=== PATIENT | female | born 1965 | race Caucasian/White ===

== ENCOUNTER → 2017-04-15 | Outpatient (CLI) | payer BC ==
[~2017-04-15] MED LIST: ACETAMIN-HYDROcod 325-5 MG PO; FERR324T4 PO; MEDR10 PO; PERC5TAB12 PO; PROV10TA PO; VITA500S3 SL; VITA500T83 PO; ZOFR8TAB PO
[2017-04-15 13:51] LABS: AUTOMATED NEUTROPHIL # 3.6 TH/MM3 (1.8-7.7); BASOPHIL % 0.6 % (0.0-2.0); EOSINOPHIL # 0.2 TH/MM3 (0-0.4); EOSINOPHIL % 3.7 % (0.0-4.0); HEMATOCRIT 38.7 % (35.0-46.0); LYMPH % 26.3 % (9.0-44.0); LYMPHOCYTE # 1.6 TH/MM3 (1.0-4.8); MEAN CORPUSCULAR HEMOGLOBIN 28.9 PG (27.0-34.0); MEAN CORPUSCULAR HGB CONC 33.6 % (32.0-36.0); MONO % 9.9 % (0.0-8.0); NEUT % 59.5 % (16.0-70.0); PLATELET COUNT 163 TH/MM3 (150-450); RED CELL DISTRIBUTION WIDTH 15.8 % (11.6-17.2); WHITE BLOOD COUNT 6.1 TH/MM3 (4.0-11.0)
[2017-04-15 13:54] LABS: BACTERIA, URINE OCC /hpf; BLOOD, URINE NEG (NEG); COMMENT (UR) CULT NOT INDICATED; CULTURE IF INDICATED CULT NOT INDICATED; GLUCOSE,URINE NEG (NEG); HYALINE CAST, URINE 1 /lpf (RARE); KETONE, URINE NEG (NEG); MUCUS URINE FEW /lpf (OCC); NITRITE,URINE NEG (NEG); PH, URINE 5.5 (5.0-8.5); SQUAMOUS EPITHELIAL CELL URINE 2 /hpf (0-5); URINE COLOR YELLOW (YELLW/STRAW)
[2017-04-15 13:56] LABS: HEMO FLAGS DIFF FINAL
--- NOTE | 2017-04-16 14:25 | EKG ---
Date Performed: 04/15/2017 Time Performed: 13:38:48 PTAGE: 51 years EKG: Sinus rhythm POSSIBLE LEFT ATRIAL ENLARGEMENT BORDERLINE ECG NO PREVIOUS TRACING DOCTOR: Aditya Gilman Interpretating Date/Time 04/16/2017 14:22:01
== END ==
LOC: CPRE 13:19
PROVIDERS: ATTEND Obstetrics & Gynecology
DX: Z01.810 Encounter for preprocedural cardiovascular examination (principal); Z01.812 Encounter for preprocedural laboratory examination; N92.0 Excessive and frequent menstruation with regular cycle; D50.0 Iron deficiency anemia secondary to blood loss (chronic); R94.31 Abnormal electrocardiogram [ECG] [EKG]
CPT/HCPCS: 36415; 81001; 85025; 93005

== ENCOUNTER 2017-04-21 10:17 | Observation (INO) | payer BC ==
--- NOTE | 2017-04-20 09:02 | MH ---
cc: MARGO RAI DATE OF ADMISSION 04/21/2017 ADMITTING DIAGNOSIS Menorrhagia with anemia HISTORY OF PRESENT ILLNESS This is a 51-year-old white female para 2-0-0-2 who has had persistent menorrhagia reduced with progesterone, but still anemic and now admitted for hysterectomy. PAST MEDICAL HISTORY She initially presented in December 31, 2015. Endometrial biopsy showed hyperplasia and she underwent outpatient hysteroscopy/D&C on 02/18/2016 which returned with benign tissue and she had a laparoscopic polypectomy through Dr. Oviedo at that time. Since that time, she has been cycled with Provera with persistent bleeding. Her last endometrial biopsy from 01/2017 was benign. She had colonoscopy in May 2016. Diagnosed with carcinoma and a partial colectomy through Dr. Welch in May of 2016. ADDITIONAL PAST MEDICAL HISTORY She had a tubal ligation in 1994. MEDICATIONS 1. Iron 2. Vitamins ALLERGIES DECADRON TRANSFUSIONS None OBSTETRICAL HISTORY x2 and tubal. 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 She is . Alcohol, tobacco and drugs are none. FAMILY HISTORY Her family history is noncontributory. PHYSICAL EXAM Reveals a well-nourished, well-developed white female. VITAL SIGNs: Stable. HEENT: Exam is normal. CHEST: Clear. HEART: Regular rate. ABDOMEN: Benign. PELVIC EXAM: External genitalia and BUS, vagina is normal. Cervix is normal. Uterus is about 12 weeks' size. Adnexa nonpalpable. ASSESSMENT As above. PLAN She is now admitted for planned laparoscopy through an open incision. She had bowel prep. If feasible, she will have a LASH/BSO, if not, she will have a SUNITA/BSO. Dr. Welch has been consulted to the available in the event that she has extensive adhesions and requires the additional bowel procedures. She is aware that the surgical procedure, risks and benefits will be effected by the extensive surgery and expected recovery as well. She elects to proceed. MD GUTIERREZ Stern/CINDY /8:33 AM /8:51 AM
[~2017-04-21] VITALS: Ht 172.7 cm; Wt 117.1 kg
[~2017-04-21 10:17] MED LIST changes: -ACETAMIN-HYDROcod 325-5 MG PO; +BUPIVACAINE LIPOSOME PF 1.3% 20 ML VIAL ONE; -FERR324T4 PO; -MEDR10 PO; -PERC5TAB12 PO; -VITA500S3 SL; -VITA500T83 PO; -ZOFR8TAB PO
[2017-04-21] MEDS ORDERED: POVIDONE IODINE 5% (ANTISEPSIS KIT) 4 APPLICATIONS EACH NARE PRN (10:45)
[2017-04-21] MEDS ORDERED: CHLORHEXIDINE GLUCONATE 2 % 1 PACK (2 CLOTHS) TOPICAL PRN (10:45)
[2017-04-21] MEDS ORDERED: SODIUM CHLORID 0.9% 500 ML IV PRN (10:45)
[2017-04-21] MEDS ORDERED: LACTATED RINGER'S 1000 ML IV PRN (10:45)
[2017-04-21] MEDS ORDERED: INSULIN HUMAN REGULAR 1,000 UNITS/10 ML VIAL SQ PRN (10:45)
[2017-04-21] MEDS ORDERED: METOPROLOL TARTRATE 25 MG TAB PO PRN (10:45)
[2017-04-21 10:48] VITALS: BP 134/84; PULSE 79; RESP 20; TEMP 98.8; O2SAT 95
[2017-04-21] MEDS ORDERED: ceFAZolin 2 GM PREMIX 50 ML IV ONE (11:00)
[2017-04-21] MEDS: ACETAMINOPHEN 1000 MG/100 ML VIAL IV ONE (11:00)
[2017-04-21] MEDS ORDERED: NEOSTIGMINE 3 MG/3 ML SYR IV ONE ×2 (12:00)
[2017-04-21] MEDS ORDERED: ONDANSETRON HCL 4 MG/2 ML VIAL IV PUSH ONE (12:00)
[2017-04-21] MEDS ORDERED: LACTATED RINGER'S 1000 ML INJ 2,000 ML IV ONE (12:00)
[2017-04-21] MEDS ORDERED: PROPOFOL 200 MG/20 ML AMP IV ONE (12:00)
[2017-04-21] MEDS ORDERED: KETOROLAC TROMETHAMINE 60 MG/2 ML (IM) VIAL IM ONE (12:00)
[2017-04-21] MEDS ORDERED: ePHEDrine/NS 25 MG/5 ML SYR IV ONE (12:00)
[2017-04-21] MEDS ORDERED: FAMOTIDINE 20 MG/2 ML VIAL ONE (12:27)
[2017-04-21] MEDS ORDERED: MIDAZOLAM HCL 2 MG/2 ML VIAL ONE (12:27)
[2017-04-21] MEDS ORDERED: APREPITANT 40 MG CAP ONE (12:27)
[2017-04-21] MEDS ORDERED: SODIUM CHLORIDE 0.9% FLUSH 5 ML FLUSH FLUSH PRN (14:30)
[2017-04-21] MEDS ORDERED: diphenhydrAMINE HCL 25 MG CAP PO PRN (14:30)
[2017-04-21] MEDS ORDERED: HYDROmorphone HCL PF 1 MG/ML VIAL IV PRN (14:30)
[2017-04-21] MEDS ORDERED: PROMETHAZINE HCL 25 MG TAB PO PRN (14:30)
[2017-04-21] MEDS ORDERED: ONDANSETRON HCL 4 MG/2 ML VIAL IV PRN (14:30)
[2017-04-21] MEDS ORDERED: ONDANSETRON ODT 4 MG TAB PO PRN (14:30)
[2017-04-21] MEDS ORDERED: METOCLOPRAMIDE HCL 10 MG/2 ML VIAL IV PUSH PRN (14:30)
[2017-04-21] MEDS: D5-1/2 NS + KCL 20 MEQ INJ 1,000 ML IV SCH ×2 (15:00→23:22)
[2017-04-21] MEDS ORDERED: MORPHINE SULFATE 4 MG/ML INJ ONE (15:07)
[2017-04-21] MEDS ORDERED: fentaNYL CITRATE 250 MCG/5 ML AMP ONE (15:07)
[2017-04-21] MEDS ORDERED: *morphine SULFATE 8 MG/ML PERIprocedure ONLY ONE ×2 (15:14→15:37)
[2017-04-21] MEDS ORDERED: ONDANSETRON INJ 8 MG in DEXTROSE 5% IN WATER INJ 50 ML IV PRN ×2 (15:15)
[2017-04-21] MEDS ORDERED: DO NOT ADM ANY ANTICOAGULANT DRUGS PRN (16:00)
[2017-04-21 16:15] VITALS: BP 128/75; PULSE 62; RESP 16; TEMP 97.2; O2SAT 94
[2017-04-21] MEDS: DOCUSATE SODIUM 100 MG CAP PO SCH (17:51)
[2017-04-21 19:01] LABS: HEMATOCRIT 35.2 % (35.0-46.0); REVIEW FLAG FINAL
[2017-04-21] MEDS: SODIUM CHLORIDE 0.9% FLUSH 5 ML FLUSH FLUSH SCH (20:08)
[2017-04-21] MEDS: ACETAMINOPHEN 1000 MG/100 ML VIAL IV SCH (20:11)
[2017-04-21] MEDS: KETOROLAC TROMETHAMINE 30 MG/ML (IVP) VIAL IVP SCH (20:12)
[2017-04-21 20:30] VITALS: BP 123/70; PULSE 72; RESP 16; TEMP 97.9; O2SAT 97
[2017-04-21] MEDS ORDERED: ZOLPIDEM TARTRATE 5 MG TAB PO PRN (21:00)
[2017-04-22 00:10] VITALS: O2SAT 95
[2017-04-22 00:30] VITALS: BP 110/59; PULSE 67; RESP 16; TEMP 97.1; O2SAT 98
[2017-04-22] MEDS: KETOROLAC TROMETHAMINE 30 MG/ML (IVP) VIAL IVP SCH ×3 (02:20→14:12)
[2017-04-22] MEDS: DOCUSATE SODIUM 100 MG CAP PO SCH (04:25)
[2017-04-22] MEDS: ACETAMINOPHEN 1000 MG/100 ML VIAL IV SCH ×2 (04:31→11:58)
[2017-04-22 05:00] VITALS: BP 116/66; PULSE 75; RESP 16; TEMP 97.5; O2SAT 96
[2017-04-22] MEDS: D5-1/2 NS + KCL 20 MEQ INJ 1,000 ML IV SCH (06:23)
[2017-04-22 07:33] LABS: AUTOMATED NEUTROPHIL # 4.2 TH/MM3 (1.8-7.7); BASOPHIL % 0.2 % (0.0-2.0); EOSINOPHIL # 0.1 TH/MM3 (0-0.4); EOSINOPHIL % 2.3 % (0.0-4.0); HEMATOCRIT 37.1 % (35.0-46.0); HEMO FLAGS DIFF FINAL; LYMPH % 13.2 % (9.0-44.0); LYMPHOCYTE # 0.7 TH/MM3 (1.0-4.8); MEAN CELL VOLUME 85.7 FL (80.0-100.0); MEAN CORPUSCULAR HEMOGLOBIN 27.4 PG (27.0-34.0); MONO % 6.9 % (0.0-8.0); NEUT % 77.4 % (16.0-70.0); PLATELET COUNT 141 TH/MM3 (150-450); RED BLOOD COUNT 4.33 MIL/MM3 (4.00-5.30); RED CELL DISTRIBUTION WIDTH 15.8 % (11.6-17.2); WHITE BLOOD COUNT 5.4 TH/MM3 (4.0-11.0)
[2017-04-22 07:53] LABS: BICARBONATE 26.7 MEQ/L (21.0-32.0); POTASSIUM 3.7 MEQ/L (3.5-5.1)
[2017-04-22 08:00] VITALS: BP 116/67; PULSE 69; RESP 18; TEMP 96.7; O2SAT 94
--- NOTE | 2017-04-22 08:08 | MP ---
cc: TALIA RAMIREZ DATE OF SURGERY 04/21/2017 PREOPERATIVE DIAGNOSIS History of colon adenocarcinoma. POSTOPERATIVE DIAGNOSIS History of colon adenocarcinoma. PROCEDURE Diagnostic laparoscopy (staging laparoscopy). ATTENDING SURGEON Dr. Talia Ramirez POND SUPERVISOR Dr. Hugo Reyes ANESTHESIA General. BLOOD LOSS Less than 10 cc. COMPLICATIONS None. FINDINGS 1. Normal-appearing liver, free of any extrinsic evidence of disease and no metastasis. 2. Minimal adhesions in the abdomen. 3. A few small adhesions upper midline. 4. No evidence of carcinomatosis or metastatic disease. INDICATIONS FOR PROCEDURE The patient is a 51-year-old female who one year ago was diagnosed with a proximal colon adenocarcinoma, underwent open extended right hemicolectomy and lymphadenectomy. The patient was diagnosed with Stage III disease and underwent adjuvant chemotherapy. The patient currently is in the ED but was recommended to undergo hysterectomy due to SENIOR IT AUDITOR pathology and due to the patient's previous and recent malignancy and large operation of the abdomen, there was concern for risk for intraoperative adhesions or potentially cancer recurrence. I was asked to be present for the diagnostic laparoscopy during the planned hysterectomy procedure for evaluation of the abdomen and possible lysis of adhesions if needed. The risks, benefits and alternatives to this were discussed with the patient prior to the procedure and the patient agreed to undergo the procedure. Informed consent was obtained. The patient was taken to the operating room, placed in supine position, placed under general endotracheal anesthesia. Dr. Reyes and myself were both scrubbed for entry into the abdomen which was a direct entry incision a little bit below the umbilicus. Please see Dr. Reyes's dictation for this portion of procedure. This was done in a Mario type technique and with a GelPort placed directly into the abdomen. Upon entry into the abdomen, I used a 0-degree, 5-mm scope to perform diagnostic laparoscopy. The abdomen was evaluated in all four quadrants. There was some normal bowel and colon. There were minimal adhesions as the only adhesions noted were in the epigastric area at the midline incision. There was a normal-appearing liver with no evidence of extrinsic evidence of disease or metastatic deposits. There was mild splenomegaly with no external evidence of any pathology. There was no carcinomatosis or for fluid in the abdomen concerning for malignancy. At this point time we performed evaluation and pelvis. Using a blunt grasper we were to elevate the uterus and ovaries. There was no evidence of any adhesions to the reproductive organs and this was free for likely laparoscopic approach for hysterectomy. At this point in time, the patient did undergo a hysterectomy per Dr. Reyes. Please see his dictated note and I broke scrub in order that his nurse practitioner could assist him in his procedure. The patient tolerated the above procedure well. I was present and scrubbed for that portion of the procedure. No apparent complications. Talia Ramirez MD AWG/SSB /1:51 PM /7:56 AM
[2017-04-22] MEDS: SODIUM CHLORIDE 0.9% FLUSH 5 ML FLUSH FLUSH SCH (08:14)
[2017-04-22 09:11] VITALS: O2SAT 96
--- NOTE | 2017-04-22 11:28 | MP ---
cc: MARGO RAI DATE OF SURGERY 04/21/2017 PREOPERATIVE DIAGNOSIS Menorrhagia with anemia. POSTOPERATIVE DIAGNOSIS Menorrhagia with anemia. PROCEDURE Laparoscopic-assisted supracervical hysterectomy, bilateral salpingo-oophorectomy (LASH BSO). ANESTHESIA General ET. SURGEON Margo Rai MD, CO-SURGEON Troy Welch MD BUSINESS EDUCATION PROFESSOR GIOVANNA Osei ESTIMATED BLOOD LOSS 100 cc FLUIDS 1.6 liters crystalloid. OBJECTIVE FINDINGS Following the induction of adequate general endotracheal anesthesia, the patient was prepped and draped supine on the operating table in the usual sterile fashion with the bladder being drained by Wong catheterization. The abdomen was opened through a 3-cm curving infraumbilical incision using a knife to cut down through the skin to the fascia. The fascia was opened transversely, the rectus muscle split in the midline and the peritoneum opened sharply. Dr. Welch then did digital palpation which was free of adhesions. The GelPort was placed, the laparoscope inserted. Dr. Welch inspected the liver and previous bowel surgery which was in good condition with no signs of any recurrent disease. He inspected the pelvis which was clear of adhesions and Dr. Welch then scrubbed out. A 5-port was placed in the left lower quadrant and Air Sure in the right lower quadrant. The uterus was about 12 weeks' size; ovaries were normal, the tubes with interruption. Working first on the left, harmonic scalpel was used to take the left ovarian pedicle, the left round ligament, left broad ligament, left side of the bladder flap and the left uterine vessels. On the right side the harmonic scalpel was used to resect the right uteroovarian pedicle, right round ligament, right broad ligament and right side of the bladder flap and the right uterine vessels. The harmonic scalpel was now used to amputate the fundus from the cervix. The pouch was inserted, used to extract the fundus, left tube and ovary. The right tube and ovary was then taken with the harmonic scalpel and extracted through the GelPort. Irrigation was performed. No bleeding was evident. The ureters were intact with good peristalsis. Low-pressure test was done there was no bleeding. The operative site was now coated with Evicel, the GelPort removed and the peritoneum sutured with a running 2-0 Vicryl, the fascia with a running locking stitch of 0 Vicryl from each corner to the midline and tied; the subcu with running 3-0 Vicryl and the skin with a running subcuticular 3-0 Monocryl. Dermabond was applied. The scope was now reinserted through the lower port and used to inspect the GelPort site which was well closed; no bleeding, no entrapment of tissue or viscera. The pelvis was inspected; there was no bleeding. The scope was removed, the gas allowed to escape, the small port removed and sutured with 3-0 Monocryl. Dermabond was applied. All counts were correct. The patient was awakened and taken to the recovery room in good condition. MD GUTIERREZ Stern/DAVID /2:41 PM /11:10 AM ANTONIA
[2017-04-22] MEDS: ACETAMINOPHEN 1000 MG/100 ML VIAL IV ONE (11:35)
[2017-04-22 12:00] VITALS: BP 125/76; PULSE 81; RESP 18; TEMP 97.2; O2SAT 95
[2017-04-22] MEDS ORDERED: ZOFR8TAB PO (14:43)
[2017-04-22] MEDS ORDERED: PERC5TAB12 PO (14:43)
== END 2017-04-22 15:25 | disposition home or self-care (01) ==
LOC: HSDC 10:17 → HSDI 14:26 → HOCB 16:14
PROVIDERS: ADMIT Obstetrics & Gynecology; ATTEND Obstetrics & Gynecology
DX: D26.1 Other benign neoplasm of corpus uteri (principal); N83.02 Follicular cyst of left ovary; N83.01 Follicular cyst of right ovary; N83.8 Other noninflammatory disorders of ovary, fallopian tube and broad ligament; N85.8 Other specified noninflammatory disorders of uterus; N92.0 Excessive and frequent menstruation with regular cycle; D64.9 Anemia, unspecified; K66.0 Peritoneal adhesions (postprocedural) (postinfection); R16.1 Splenomegaly, not elsewhere classified; Z90.49 Acquired absence of other specified parts of digestive tract; Z88.8 Allergy status to other drugs, medicaments and biological substances; Z85.038 Personal history of other malignant neoplasm of large intestine
CPT/HCPCS: 58542; 80048; 85014; 85018; 85025; 86850; 86900; 86901; 88307; 94150; 96361; 96374; 96375; 96376; C9290; G0378; J0131; J0690; J1885; J2250; J2270; J2405; J2710; J3010; J3480; J7120; J8501